=== PATIENT | female | born 1975 | race Two or more races ===

== ENCOUNTER 2024-10-04 15:30 | Emergency (ER) | payer MEDICAID, OTHER ==
[~2024-10-04] VITALS: Ht 160 cm; Wt 67.1 kg
[2024-10-04 16:11] LABS: Basophils # (auto) 0 10 ^3/uL (0-0.2); Basophils % (auto) 0.5 % (0.0-2.0); Chloride 105 mmol/L (98-107); Eosinophils # (auto) 0.1 10 ^3/uL (0-0.8); Eosinophils % (auto) 0.9 % (0.0-7.0); Hematocrit 42.2 % (36.0-46.0); Hemoglobin 14.4 g/dL (12.2-16.2); Lymphocytes # (auto) 2.3 10 ^3/uL (0.4-5.4); Lymphocytes % (auto) 37.8 % (10.0-50.0); Mean Corpuscular Hemoglobin 30.6 pg (28.0-32.0); Mean Corpuscular Hgb Conc. 34.1 g/dL (32.0-36.0); Mean Corpuscular Volume 89.7 fL (80.0-100.0); Monocytes # (auto) 0.7 10 ^3/uL (0-1.3); Neutrophils % (auto) 49.8 % (37.0-80.0); Nucleated Red Blood Cells % 0.1 %; Platelet Count (auto) 264 10^3/uL (140-450); Potassium 4.1 mmol/L (3.5-5.1); Red Cell Distribution Width 14.7 % (11.8-14.3); Sodium 142 mmol/L (136-145)
[2024-10-04 16:12] LABS: Anion Gap 8 (5-15); Calcium 10.4 mg/dL (8.7-10.4); Carbon Dioxide 29 mmol/L (20-31)
[2024-10-04 16:17] LABS: BUN/Creatinine Ratio 19.2 (10.0-20.0); Blood Urea Nitrogen 14 mg/dL (9-23); Glucose 103 mg/dL (74-106)
--- NOTE | 2024-10-04 16:36 | ECG ---
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
--- NOTE | 2024-10-04 16:46 | DVH ---
XY CHEST TWO VIEWS ROUTINE CLINICAL HISTORY: chest pain COMPARISON: None TECHNIQUE: Frontal and lateral view of the chest was obtained FINDINGS: Lines and Tubes: None Lungs: No focal consolidation. Pleura: No effusion. No pneumothorax. Cardiomediastinal contours: Unremarkable Bones: No acute osseous abnormality. IMPRESSION: 1. No acute cardiopulmonary disease.
--- NOTE | 2024-10-04 17:06 | ED.PDOC ---
History of Present Illness HPI Comments 49-year-old woman previously healthy presents with 3 days of right-sided chest pain that moves occasionally substernal into her back. Patient has a lot of heavy lifting at work and is worried that she may have strained her muscles. Patient came into the ER today because patient's mom last year of a heart attack the patient's sister less than a year ago from heart attack. Patient reports her pain initially was 8/10 and sharp however the pain has since resolved. Patient denies any fever chills nausea vomiting diarrhea dysuria or polyuria sick contacts or recent travel Chief Complaint: Chest Wall Injury Time Seen by MD: 15:46 Primary Care Provider: VINICIUS Allergies: Coded Allergies: NO KNOWN ALLERGIES (Unverified , 10/04/24) Mode of Arrival: Ambulatory All Other Systems: Reviewed and Negative Physical Exam General Appearance: No Apparent Distress HEENT: Pharynx Normal Neck: Normal Inspection Respiratory: No Respiratory Distress Cardiovascular: No Edema Breast Exam: Deferred Gastrointestinal: NOT DONE Genitalia: Deferred Pelvic: Deferred Rectal: Deferred Extremities: No pedal edema Neurologic: No Motor Deficits Cerebellar Function: NOT DONE Reflexes: NOT DONE Skin: Normal Color Lymphatic: NOT DONE Was a procedure done? Was a procedure done?: No Differential Dx Considerations may include: ACS, CVA, muscle strain, viral syndrome, GERD X-Ray, Labs, Meds, VS Vital Signs Date Time Temp Pulse Resp B/P (MAP) Pulse Ox O2 Delivery O2 Flow Rate FiO2 10/04/24 16:34 61 10/04/24 15:43 67 10/04/24 15:32 98.3 62 16 170/82 (111) 99 98.3 Lab Test 10/04/24 15:53 Range/Units White Blood Count 6.0 4.4-10.8 10^3/uL Red Blood Count 4.70 4.0-5.20 10^6/uL Hemoglobin 14.4 12.2-16.2 g/dL Hematocrit 42.2 36.0-46.0 % Mean Corpuscular Volume 89.7 80.0-100.0 fL Mean Corpuscular Hemoglobin 30.6 28.0-32.0 pg Mean Corpuscular Hemoglobin Concent 34.1 32.0-36.0 g/dL Red Cell Distribution Width 14.7 H 11.8-14.3 % Platelet Count 264 140-450 10^3/uL Mean Platelet Volume 7.2 6.9-10.8 fL Neutrophils (%) (Auto) 49.8 37.0-80.0 % Lymphocytes (%) (Auto) 37.8 10.0-50.0 % Monocytes (%) (Auto) 11.0 0.0-12.0 % Eosinophils (%) (Auto) 0.9 0.0-7.0 % Basophils (%) (Auto) 0.5 0.0-2.0 % Neutrophils # (Auto) 3.0 1.6-8.6 10 ^3/uL Lymphocytes # (Auto) 2.3 0.4-5.4 10 ^3/uL Monocytes # (Auto) 0.7 0-1.3 10 ^3/uL Eosinophils # (Auto) 0.1 0-0.8 10 ^3/uL Basophils # (Auto) 0 0-0.2 10 ^3/uL Nucleated Red Blood Cells 0.1 % Sodium Level 142 136-145 mmol/L Potassium Level 4.1 3.5-5.1 mmol/L Chloride Level 105 98-107 mmol/L Carbon Dioxide Level 29 20-31 mmol/L Anion Gap 8 5-15 Blood Urea Nitrogen 14 9-23 mg/dL Creatinine 0.73 0.550-1.02 mg/dL Glomerular Filtration Rate Calc 101 >90 mL/min BUN/Creatinine Ratio 19.2 10.0-20.0 Serum Glucose 103 74-106 mg/dL Calcium Level 10.4 8.7-10.4 mg/dL Troponin I High Sensitivity < 3 L </=34 ng/L Time of 1ST Reevaluation: 17:10 Reevaluation 1ST: Resolved Patient Education/Counseling: Diagnosis, Treatment Family Education/Counseling: No Family Present Departure 1 Departure Time of Disposition: 17:10 (Patient presented with chest pain that was concerning for possible STEMI, ACS, PE, Pneumonia, Muscle Strain, COPD, Dissection. Data: 1. I ordered and reviewed the result of at least 3 labs including a CBC, BMP, and Troponin. 2. I independently interpreted the following tests: EKG which shows normal sinus rhythm and Chest X-ray which shows a benign chest.Risk:This patient presented with a high risk of morbidity due to further diagnostic testing or treatment and may suffer from an acute cardiac or respiratory disorder. After review of all the data patient is unlikely to have a pe , dissection, and is low risk for acs. Patient is stable at this time.Workup so far is benign and patient will be discharged with outpatient followup. ) Impression: Primary Impression: Acute chest pain Disposition: HOME / SELF CARE / HOMELESS Condition: Stable Additional Instructions: You presented today with chest pain. Your workup today was benign including labs, troponin, EKG, chest x-ray. Your pain may be from musculoskeletal strain, acid reflux, anxiety, or many other factors. It is important to follow up with your regular doctor within 1 week. If your symptoms worsen or you have any other concerns please return to the emergency room. Discharged With: Self Critical Care Note Critical Care Time?: No Stability Stability form required: No Heart Score Heart Score: Heart Score Response (Comments) Value History Slightly Suspicious 0 EKG Normal 0 Age 45-64 1 Risk Factors No known risk factors 0 Troponin Normal limit 0 Total 1 RADHA VICTOR MD October 04, 2024 17:06
[2024-10-04 18:25] VITALS: BP 149/74; PULSE 59; RESP 16; O2SAT 98
[2024-10-04 18:26] VITALS: TEMP 97.9
[2024-10-04] MEDS: ACETAMINOPHEN 325 MG TAB PO ONE (18:26)
[2024-10-04] MEDS: KETOROLAC TROMETH 30 MG/ML 1ML VIAL IM ONE (18:27)
--- NOTE | 2024-10-05 10:34 | ECG ---
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
== END 2024-10-04 18:36 | disposition home or self-care (01) ==
LOC: ER 15:38
DX: R07.89 Other chest pain (principal)
CPT/HCPCS: 36415; 71046; 80048; 84484; 85025; 93005; 96372; 99285; J1885